=== PATIENT | male | born 1985 | race Caucasian/White ===

== ENCOUNTER 2019-05-01 17:03 | Emergency (ER) | payer SELFPAY ==
[~2019-05-01] VITALS: Ht 180.3 cm; Wt 86.2 kg
[2019-05-01 17:06] VITALS: BP 108/69
[2019-05-01 17:22] VITALS: BP 108/69
== END 2019-05-01 17:22 ==
LOC: MED 17:03
DX: Z02.89 Encounter for other administrative examinations (principal)
CPT/HCPCS: 99283